=== PATIENT | female | born 1975 | race Caucasian/White ===

== ENCOUNTER 2019-12-02 15:54 | Emergency (ER) | payer OTHER ==
[~2019-12-02] VITALS: Ht 172.7 cm; Wt 99.8 kg
[~2019-12-02 15:54] MED LIST: ONDANSETRON HCL8 MG PO; PROMETHAZINE HC25 M1 PO
[2019-12-02] MEDS ORDERED: VENTOLIN HFA18 GM INH (16:07)
--- NOTE | 2019-12-04 09:08 | EKG ---
[facility] [address] [facility] [place], [place] [address] Signed Normal sinus rhythm Normal ECG No previous ECGs available Confirmed by EBONY THOMAS MD ([id number]) on 12/04/2019 9:08:37 AM Electronically Signed By: EBONY THOMAS MD 12/04/19 0908 PATIENT NAME: SEJAL CASIANO Electrocardiogram DATE OF : 73 PHYSICIAN: EBONY THOMAS MD REPORT #: [id number] REPORT IS CONFIDENTIAL AND NOT TO BE RELEASED WITHOUT AUTHORIZATION
== END 2019-12-02 18:00 | disposition home or self-care (01) ==
LOC: ED 15:54
DX: B34.9 Viral infection, unspecified (principal)
CPT/HCPCS: 71045; 93005; 93010; 99285-25

== ENCOUNTER 2021-09-03 06:54 | Emergency (ER) | payer OTHER ==
[~2021-09-03] VITALS: Ht 172.7 cm; Wt 113.4 kg
[~2021-09-03 06:54] MED LIST changes: +VENTOLIN HFA18 GM INH
[2021-09-03] MEDS ORDERED: REGLAN10 MG PO (08:42)
[2021-09-03] MEDS ORDERED: ONDANSETRON ODT8 MG PO (08:42)
== END 2021-09-03 09:25 | disposition home or self-care (01) ==
LOC: ED 06:54
DX: S06.0X0A Concussion without loss of consciousness, initial encounter (principal); W22.8XXA Striking against or struck by other objects, initial encounter; Y99.0 Civilian activity done for income or pay
CPT/HCPCS: 99283; A9270

== ENCOUNTER 2021-10-10 11:39 | Emergency (ER) | payer OTHER ==
[~2021-10-10] VITALS: Ht 172.7 cm; Wt 113.4 kg
[~2021-10-10 11:39] MED LIST changes: +ONDANSETRON ODT8 MG PO; +REGLAN10 MG PO
[2021-10-10] MEDS ORDERED: CEPHALEXIN500 M1 PO (16:41)
[2021-10-10] MEDS ORDERED: HYDROCODON-ACE1 EA11 PO (16:41)
[2021-10-10] MEDS ORDERED: ONDANSETRON ODT8 MG PO (16:41)
== END 2021-10-10 17:18 | disposition home or self-care (01) ==
LOC: ED 11:39
DX: N12 Tubulo-interstitial nephritis, not specified as acute or chronic (principal); J45.909 Unspecified asthma, uncomplicated; Z79.899 Other long term (current) drug therapy
CPT/HCPCS: 36415; 74176; 80053; 81001; 83605; 84703; 85025; 96361; 96365; 96366; 96375; 96376; 99284-25; J0696; J1170; J1885; J2405; J7030

== ENCOUNTER 2023-11-26 13:31 | Emergency (ER) | payer OTHER ==
[~2023-11-26] VITALS: Ht 172.7 cm; Wt 109.5 kg
[~2023-11-26 13:31] MED LIST changes: +CEPHALEXIN500 M1 PO; +HYDROCODON-ACE1 EA11 PO
[2023-11-26 14:00] LABS: BASOPHILS 0.5 % (0-2); EOSINOPHILS 4.6 % (0-6); HEMATOCRIT 43.9 % (35.0-50.0); HEMOGLOBIN 15.1 g/dL (12.0-18.0); LYMPHOCYTES 44.9 % (24-44); MCH 27.8 (27-36); MCHC 34.4 g/dl (30-36); MCV 80.8 fl (81-99); MONOCYTES 8.2 % (0-12); NEUTROPHILS 41.8 % (39-80); PLATELET COUNT 253 K/uL (140-440); RBC 5.43 M/ul (4.3-5.7); RDW 13.7 (10.5-15.0)
[2023-11-26] MEDS ORDERED: KETOROLAC TROMETHAMINE 30 MG/ML VIAL IV ONE (14:00)
[2023-11-26] MEDS ORDERED: SODIUM CHLORIDE 0.9% 1,000 ML IV ONE (14:00)
[2023-11-26 14:20] LABS: ALBUMIN 3.4 g/dL (3.4-5.0); ALBUMIN/GLOBULIN RATIO 0.89 (1.1-2.4); ANION GAP 13.8 (7-21); BILIRUBIN, TOTAL 0.5 ng/dL (0.2-1.0); BUN/CREATININE RATIO 14.77 (6.0-28.6); CALCIUM 8.6 mg/dL (8.5-10.1); CREATININE, SERUM 0.88 mg/dL (0.55-1.02); POTASSIUM 3.8 mmol/L (3.5-5.1); PROTEIN, TOTAL 7.2 g/dL (6.4-8.2)
[2023-11-26 15:13] LABS: INFLUENZA B NAA NEGATIVE (NEGATIVE); RESPIRATORY SYNCYTIAL VIR NAA NEGATIVE (NEGATIVE)
[2023-11-26 16:07] VITALS: BP 164/79
--- NOTE | 2023-11-27 13:40 | EKG ---
[facility] [address] [facility] [place], [place] [address] Signed Normal sinus rhythm Normal ECG When compared with ECG of 02-DEC-2019 17:04, No significant change was found Confirmed by Raine Carlos MD ([id number]) on 11/27/2023 1:40:15 PM Electronically Signed By: RAINE CARLOS 11/27/23 1340 PATIENT NAME: SEJAL CASIANO Electrocardiogram DATE OF : 73 PHYSICIAN: RAINE CARLOS REPORT #: [id number] REPORT IS CONFIDENTIAL AND NOT TO BE RELEASED WITHOUT AUTHORIZATION
== END 2023-11-26 16:07 | disposition home or self-care (01) ==
LOC: ED 13:31
PROVIDERS: Emergency Medicine
DX: B34.9 Viral infection, unspecified (principal); J45.998 Other asthma; Z88.5 Allergy status to narcotic agent; Z79.899 Other long term (current) drug therapy
CPT/HCPCS: 36415; 71045; 80053; 84484; 85025; 87502; 93005; 93010; 96374; 99284-25; J1885; J7030; U0002